=== PATIENT | male | born 1960 ===

== ENCOUNTER → 2023-10-11 | Outpatient (CLI) | payer BC ==
[~2023-10-11] VITALS: Ht 188 cm; Wt 104.3 kg
== END | disposition home or self-care (01) ==
LOC: Rad HDHVI 13:21
PROVIDERS: ATTEND Internal Medicine Cardiovascular Disease
DX: I10 Essential (primary) hypertension (principal); R94.31 Abnormal electrocardiogram [ECG] [EKG]; E78.00 Pure hypercholesterolemia, unspecified
CPT/HCPCS: 78452; 93017; 93306; 96374; A9500